=== PATIENT | female | born 1950 | race Caucasian/White ===

== ENCOUNTER 2022-02-27 09:28 | Emergency (ER) | payer BC ==
[~2022-02-27] VITALS: Ht 160 cm; Wt 6.6 kg
[2022-02-27] MEDS ORDERED: normal saline 1000ML IV soln IV ONE (09:45)
[2022-02-27] MEDS ORDERED: morphine 4 MG/ML inj SYRINge IV PRN ×2 (09:45→11:15)
[2022-02-27] MEDS ORDERED: ondansetron/PF 4mg/2ml inj IV ONE (09:45)
[2022-02-27 10:17] LABS: BASOPHILS # (AUTO) 0.1 X10'3 (0-0.2); BASOPHILS % (AUTO) 0.5 % (0-1); EOSINOPHILS # (AUTO) 0.1 X10'3 (0-0.9); EOSINOPHILS % (AUTO) 0.4 % (0-6); HEMOGLOBIN 13.5 g/dl (12.0-16.0); LYMPHOCYTES # (AUTO) 1.8 X10'3 (1.1-4.8); LYMPHOCYTES % (AUTO) 11.8 % (21-51); MEAN CORPUSCULAR HGB CONC 32.9 g/dL (33.0-36.5); MEAN CORPUSCULAR VOLUME 91.2 FL (78-98); MEAN PLATELET VOLUME 7.9 FL (7.4-10.4); MONOCYTES # (AUTO) 1.1 X10'3 (0-0.9); MONOCYTES % (AUTO) 7.5 % (2-12); NEUTROPHILS # (AUTO) 11.9 X10'3 (1.8-7.7); NEUTROPHILS % (AUTO) 79.8 % (42-75); PLATELET COUNT 313 X10'3 (140-440); RED BLOOD COUNT 4.49 X10'6 (4.20-5.60); RED CELL DISTRIBUTION WIDTH 14.5 % (11.5-14.5); WHITE BLOOD COUNT 14.9 X10'3 (4.5-11.0)
[2022-02-27 10:29] LABS: ALANINE AMINOTRANSFERASE 24 U/L (12-78); ALBUMIN/GLOBULIN RATIO 0.9 (1.1-1.5); ALKALINE PHOSPHATASE 97 IU/L (46-116); ANION GAP 11 (8-16); ASPARTATE AMINO TRANSFERASE 29 U/L (10-37); BILIRUBIN,TOTAL 0.4 MG/DL (0.1-1.0); BLOOD UREA NITROGEN 17 MG/DL (7-18); BUN/CREATININE RATIO 20.7 (6.6-38.0); CALCIUM 9.8 MG/DL (8.5-10.1); CHLORIDE 96 MMOL/L (99-107); CREATININE 0.82 MG/DL (0.40-0.90); GLUCOSE 133 MG/DL (70-104); POTASSIUM 3.5 MMOL/L (3.5-5.1); SODIUM 130 MMOL/L (135-145); TOTAL CARBON DIOXIDE 22.8 MMOL/L (24-32); TOTAL PROTEIN 8.4 G/DL (6.4-8.2); eGFR 69 ML/MIN
[2022-02-27] MEDS ORDERED: CefTRIAXone 2gm/D5W 50ml BAG 50 ML IV ONE (11:10)
[2022-02-27] MEDS ORDERED: famotidine/PF 10 mg/ml inj IV ONE (11:15)
[2022-02-27] MEDS ORDERED: mag hydrox/Alum hydrox/simeth 30ml oral suspension PO ONE (11:15)
[2022-02-27] MEDS ORDERED: LIDOcaine Viscous 15ml cup MM ONE (11:15)
[2022-02-27] MEDS ORDERED: sucralfate 1 gm tablet PO ONE (11:15)
[2022-02-27 12:59] LABS: CLARITY,URINE CLEAR (Clear); COLOR,URINE STRAW (Yellow); GLUCOSE, URINE NEGATIVE (Neg); KETONES,URINE NEGATIVE (Neg); LEUKOCYTE ESTERASE ,URINE NEGATIVE (Neg); OCCULT BLOOD,URINE TRACE-INTACT (Neg); PH,URINE 5.5 (4.8-8.0); PROTEIN,URINE NEGATIVE (Neg); UROBILINOGEN,URINE 0.2 E.U/dL (0.2-1.0)
[2022-02-27 13:10] LABS: UA COLLECTION TYPE NON-SPECIFIED
[2022-02-27 13:13] LABS: NITRITES, URINE NEGATIVE (Neg)
[2022-02-27] MEDS ORDERED: ketorolac trometh. 30mg/ml inj. IV ONE (13:15)
[2022-02-27] MEDS ORDERED: ketorolac tromethamine 15mg/ml inj. IV ONE (13:15)
[2022-02-27] MEDS ORDERED: oxyCODONE/APAP 5-325mg tablet PO ONE (13:15)
[2022-02-27] MEDS ORDERED: ONDA4TAB12 PO (13:16)
[2022-02-27] MEDS ORDERED: OXYC-145 PO (13:16)
[2022-02-27 13:18] LABS: BACTERIA,URINE FEW /HPF (Neg); MUCUS STRANDS NONE SEEN /LPF (Neg); RBC,URINE 0-2 /HPF (0-2); SQUAMOUS EPITHELIAL CELL,UR FEW /LPF (FEW); WBC,URINE 0-4 /HPF (0-4)
[2022-02-27 13:22] LABS: LIPASE 1186 U/L (73-393)
[2022-02-27 14:05] VITALS: BP 156/81
== END 2022-02-27 14:18 | disposition home or self-care (01) ==
LOC: ER 09:29
DX: K85.20 Alcohol induced acute pancreatitis without necrosis or infection (principal); R10.84 Generalized abdominal pain; R11.0 Nausea; Z90.49 Acquired absence of other specified parts of digestive tract; Z79.899 Other long term (current) drug therapy
CPT/HCPCS: 36415; 71045; 80053; 81001; 83605; 83690; 83880; 84145; 84484; 85025; 87040; 87502; 87503; 93005; 96361; 96374; 96375; 99285; J0696; J1885; J2270; J2405; J3490; J7030

== ENCOUNTER 2023-11-15 12:55 | Emergency (ER) | payer BC, MEDICAID ==
[~2023-11-15] VITALS: Ht 160 cm; Wt 66.3 kg
[~2023-11-15 12:55] MED LIST: ONDA-243 PO; OXYC-145 PO
[2023-11-15 12:56] VITALS: TEMP 98.9
[2023-11-15 13:42] LABS: BASOPHILS % (AUTO) 0.5 % (0-1); EOSINOPHILS # (AUTO) 0.5 X10'3 (0-0.9); EOSINOPHILS % (AUTO) 6.8 % (0-6); HEMATOCRIT 37.9 % (35.0-45.0); HEMOGLOBIN 12.8 g/dl (12.0-16.0); LYMPHOCYTES # (AUTO) 2.2 X10'3 (1.1-4.8); LYMPHOCYTES % (AUTO) 28.6 % (21-51); MEAN CORPUSCULAR HEMOGLOBIN 32.1 PG (27.0-31.0); MEAN CORPUSCULAR HGB CONC 33.7 g/dL (33.0-36.5); MEAN CORPUSCULAR VOLUME 95.2 FL (78-98); MONOCYTES # (AUTO) 0.8 X10'3 (0-0.9); MONOCYTES % (AUTO) 10.2 % (2-12); NEUTROPHILS # (AUTO) 4.2 X10'3 (1.8-7.7); NEUTROPHILS % (AUTO) 53.9 % (42-75); PLATELET COUNT 295 X10'3 (140-440); RED BLOOD COUNT 3.98 X10'6 (4.20-5.60); RED CELL DISTRIBUTION WIDTH 13.9 % (11.5-14.5); WHITE BLOOD COUNT 7.8 X10'3 (4.5-11.0)
[2023-11-15 13:57] LABS: ALANINE AMINOTRANSFERASE 33 U/L (12-78); ALBUMIN 3.5 G/DL (3.4-5.0); ALBUMIN/GLOBULIN RATIO 0.9 (1.1-1.5); ALKALINE PHOSPHATASE 95 IU/L (46-116); ANION GAP 10 (8-16); ASPARTATE AMINO TRANSFERASE 28 U/L (10-37); BILIRUBIN,TOTAL 0.4 MG/DL (0.1-1.0); BLOOD UREA NITROGEN 18 MG/DL (7-18); BUN/CREATININE RATIO 16.5 (10.0-20.0); CALCIUM 8.9 MG/DL (8.5-10.1); CHLORIDE 106 MMOL/L (99-107); CREATININE 1.09 MG/DL (0.40-0.90); GLUCOSE 95 MG/DL (70-104); POTASSIUM 4.3 MMOL/L (3.5-5.1); SODIUM 141 MMOL/L (135-145); TOTAL CARBON DIOXIDE 25.2 MMOL/L (24-32); TOTAL PROTEIN 7.6 G/DL (6.4-8.2); eCRCL 39 ML/MIN; eGFR 49 ML/MIN
[2023-11-15 15:00] VITALS: BP 161/70; PULSE 65; RESP 14; O2SAT 99
== END 2023-11-15 15:02 | disposition home or self-care (01) ==
LOC: ER 12:55
DX: M54.6 Pain in thoracic spine (principal); Z79.899 Other long term (current) drug therapy; Z90.49 Acquired absence of other specified parts of digestive tract
CPT/HCPCS: 36415; 71045; 80053; 84484; 85025; 93005; 99285